=== PATIENT | female | born 1970 ===

== ENCOUNTER → 2021-06-12 14:39 | Outpatient (BNVA) | payer OTHER, SELFPAY | PROVIDERS: PCP Nurse Practitioner Family; Visit Provider Nurse Practitioner Family | DX: I87.002 Postthrombotic syndrome without complications of left lower extremity (principal); M47.812 Spondylosis without myelopathy or radiculopathy, cervical region; M43.06 Spondylolysis, lumbar region; M79.18 Myalgia, other site; E66.01 Morbid (severe) obesity due to excess calories; Z68.36 Body mass index [BMI] 36.0-36.9, adult | CPT/HCPCS: 99202 ==